=== PATIENT | male | born 2000 | race Caucasian/White ===

== ENCOUNTER → 2024-12-28 16:37 | Outpatient (REF) | payer BC, SELFPAY ==
[2024-12-28 17:09] LABS: % Basophils 0.6 % (0-2); % Immature Granulocytes 0.3 % (0-0.5); % Lymphocytes 25.7 % (20.5-51.1); % Monocytes 8.2 % (1.7-9.3); % Neutrophils 63.2 % (42.2-75.2); ALT (SGPT) 38 U/L (0-50); AST (SGOT) 32 U/L (17-59); Absolute Basophils 0.1 10^3/uL (0-0.2); Absolute Eosinophils 0.2 10^3/uL (0-0.7); Absolute Monocytes 0.7 10^3/uL (0.1-0.6); Albumin 5.3 g/dl (3.5-5.0); Alkaline Phosphatase 51 U/L (38-126); Blood Urea Nitrogen 30 mg/dl (9-20); Calcium 9.9 mg/dl (8.4-10.2); Carbon Dioxide 27 mmol/L (22-30); Chloride 106 mmol/L (98-107); Glucose 96 mg/dl (70-99); HDL Cholesterol 40 mg/dl; Hematocrit 48.2 % (39.0-52.0); Hemoglobin 16.3 g/dL (13.0-18.0); LDL Cholesterol, Calculated 89 mg/dl; Mean Corp Hgb Conc. 33.8 g/dL (33.0-37.0); Mean Corpuscular Hgb 29.7 pg (27.0-31.0); Mean Corpuscular Volume 87.8 fL (80.0-94.0); Mean Platelet Volume 11.3 fL (7.4-10.4); Nucleated Red Blood Cells % 0 % (-); Platelet Count 227 10^3/uL (130-400); Potassium 4.3 mmol/L (3.5-5.1); Red Blood Cell Count 5.49 10^6/uL (4.70-6.10); Red Cell Dist. Width 11.9 % (11.5-14.5); Sodium 142 mmol/L (135-145); Total Bilirubin 0.8 mg/dl (0.2-1.3); Total Cholesterol 145 mg/dl (50-199); Total Protein 8.2 g/dl (6.3-8.2); Triglyceride 80 mg/dl (10-149); Very Low Density Lipoprotein 16 mg/dl (0-30); White Blood Cell Count 7.9 10^3/uL (4.8-10.8); eGFR > 60.00
[2024-12-28 17:38] LABS: TSH 1.19 uIU/ml (0.47-4.68)
== END ==
LOC: CLAB 16:37
PROVIDERS: ATTENDING PHYSICIAN Family Medicine
DX: Z00.00 Encounter for general adult medical examination without abnormal findings (principal); R41.840 Attention and concentration deficit
CPT/HCPCS: 36415; 80053; 80061; 84443; 85025